=== PATIENT | female | born 1965 | race Caucasian/White ===

== ENCOUNTER 2020-11-03 21:06 | Emergency (ER) | payer OTHER ==
[2020-11-03] MEDS ORDERED: morphine INJ 10 MG/ML 1ML (SYR OR VIAL) IVP STA (21:23)
[2020-11-03] MEDS ORDERED: ONDANSETRON 4 MG/2 ML (SDV) Z0FRAN IVP ONE (21:30)
--- NOTE | 2020-11-03 21:38 | ED Trauma-Multisystem ---
General Chief Complaint: Trauma-Non Activation Stated Complaint: FALL Nursing Triage Note: Pt states she fell in the street and now presents with right breast/side pain History of Present Illness Date Seen by Provider: Nov 03, 2020 Time Seen by Provider: 21:25 Initial Comments This obese 55 y/o postmenopausal female smoker presents w/ severe pain in right anterior costal margin area along w/ abdominal wall ecchymosis and rib pain upon movement, coughing, or deep breath. Onset was 2-3 days ago when she fell from standing position and denies syncope/LOC. She has not sought care for this until now and states she can't take the pain any longer. She took Naproxen w/o relief. She denies chronic illness, daily meds, prior surgery, allergies to medicine, and her last menses was "years ago". No reported fever, sputum, hemoptysis, or change in her smoker's cough other than pain in chest wall on coughing. No pain in head, neck, back, or extremities. Occurred: Other Severity: Severe Method of Injury: Fall Modifying Factors: Movement Loss of Consciousness: No Loss of Consciousness Associated Symptoms (Fall): Abdominal Pain, Chest Pain; No Headache, No Nausea/Vomiting, No Neck Pain, No Shortness of Air Allergies and Home Medications Allergies Coded Allergies: No Known Drug Allergies (Unverified , 11/03/20) Patient Home Medication List Home Medication List Reviewed: Yes Review of Systems Review of Systems Constitutional: No fever Eyes: No Symptoms Reported Ears: No Symptoms Reported Nose: No Symptoms Reported Mouth: No Symptoms Reported Respiratory: cough; No hemoptysis, No phlegm, No stridor, No wheezing Cardiovascular: See HPI, Chest Pain; Denies Syncope Gastrointestinal: abdominal pain; No jaundice, No vomiting Genitourinary: no symptoms reported : No Musculoskeletal: see HPI; No back pain, No joint pain, No neck pain Skin: see HPI Psychiatric/Neurological: Anxiety; Denies Headache, Denies Numbness, Denies Weakness Past Xfxlcxf-Auyuqk-Urllal Hx Past Med/Social Hx: Reviewed and Corrections made (She denies diabetes and denies recent lab work to check for it; mother had diabetes) Patient Social History Alcohol Use: Denies Use Smoking Status: Current Everyday Smoker Type Used: Cigarettes 2nd Hand Smoke Exposure: Yes Recent Infectious Disease Expo: No Recent Hopitalizations: No Past Medical History Surgeries: No Respiratory: No Cardiac: No Neurological: No : No Female 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 oz. kg; BMI Method: General Appearance: Moderate Distress, Obese Eyes: Bilateral Eye PERRL Ears, Nose, Throat: Hearing Grossly Normal, No Evidence of ENT Injury Neck: Normal Inspection, Non Tender Cardiovascular: No JVD, Normal Peripheral Pulses Respiratory: Lungs Clear, No Accessory Muscle Use, No Respiratory Distress Gastrointestinal: Soft, Tenderness Back: Normal Inspection, No CVA Tenderness, No Vertebral Tenderness Extremity: Normal Capillary Refill, Normal Range of Motion, Non Tender Neurologic/Psychiatric: Alert, Oriented x3, No Motor/Sensory Deficits Skin: Normal Color, Damp, Ecchymosis (scattered ecchymoses on anterior abdomen) Tiffanie Coma Score Best Eye Response (Tiffanie): (4) Open Spontaneously Best Verbal Response (Tiffanie): (5) Oriented Best Motor Response (Jefferson): (6) Obeys Commands Progress/Results/Core Measures Results/Orders Lab Results Laboratory Tests Test 11/03/20 21:50 11/03/20 23:37 11/03/20 23:50 11/04/20 00:32 Range/Units White Blood Count 9.4 4.3-11.0 10^3/uL Red Blood Count 5.35 4.35-5.85 10^6/uL Hemoglobin 16.3 H 11.5-16.0 G/DL Hematocrit 52 35-52 % Mean Corpuscular Volume 96 80-99 FL Mean Corpuscular Hemoglobin 30 25-34 PG Mean Corpuscular Hemoglobin Concent 32 32-36 G/DL Red Cell Distribution Width 12.8 10.0-14.5 % Platelet Count 210 130-400 10^3/uL Mean Platelet Volume 11.5 H 7.4-10.4 FL Sodium Level 129 L 135-145 MMOL/L Potassium Level 5.0 3.6-5.0 MMOL/L Chloride Level 91 L 98-107 MMOL/L Carbon Dioxide Level 28 21-32 MMOL/L Anion Gap 10 5-14 MMOL/L Blood Urea Nitrogen 14 7-18 MG/DL Creatinine 0.65 0.60-1.30 MG/DL Estimat Glomerular Filtration Rate > 60 BUN/Creatinine Ratio 22 Glucose Level 612 *H 70-105 MG/DL Calcium Level 10.2 H 8.5-10.1 MG/DL Total Bilirubin 0.4 0.1-1.0 MG/DL Direct Bilirubin 0.2 0.0-0.3 MG/DL Indirect Bilirubin 0.2 MG/DL Aspartate Amino Transf (AST/SGOT) 40 H 5-34 U/L Alanine Aminotransferase (ALT/SGPT) 63 H 0-55 U/L Alkaline Phosphatase 175 H 40-136 U/L Total Protein 7.6 6.4-8.2 GM/DL Albumin 3.6 3.2-4.5 GM/DL Glucometer 444 *H 455 *H 70-110 MG/DL Urine Color YELLOW Urine Clarity CLEAR Urine pH 5.5 5-9 Urine Specific [place] <=1.005 1.016-1.022 Urine Protein NEGATIVE NEGATIVE Urine Glucose (UA) 3+ H NEGATIVE Urine Ketones NEGATIVE NEGATIVE Urine Nitrite NEGATIVE NEGATIVE Urine Bilirubin NEGATIVE NEGATIVE Urine Urobilinogen 0.2 < = 1.0 MG/DL Urine Leukocyte Esterase NEGATIVE NEGATIVE Urine RBC (Auto) 1+ H NEGATIVE Urine RBC 0-2 /HPF Urine WBC RARE /HPF Urine Squamous Epithelial Cells 2-5 /HPF Urine Crystals NONE /LPF Urine Bacteria TRACE /HPF Urine Casts NONE /LPF Urine Mucus NEGATIVE /LPF Urine Culture Indicated NO Test 11/04/20 01:40 Range/Units Sodium Level 137 135-145 MMOL/L Potassium Level 4.4 3.6-5.0 MMOL/L Chloride Level 101 98-107 MMOL/L Carbon Dioxide Level 25 21-32 MMOL/L Anion Gap 11 5-14 MMOL/L Blood Urea Nitrogen 17 7-18 MG/DL Creatinine 0.57 L 0.60-1.30 MG/DL Estimat Glomerular Filtration Rate > 60 BUN/Creatinine Ratio 30 Glucose Level 352 H 70-105 MG/DL Calcium Level 9.5 8.5-10.1 MG/DL My Orders Orders - LITA LARA MD Cbc No Diff (11/03/20 21:20) Basic Metabolic Panel (11/03/20 21:20) Liver Panel (11/03/20 21:20) Ua Culture If Indicated (11/03/20 21:20) Chest 1 View Ap/Pa Only (11/03/20 21:20) Ed Iv/Invasive Line Start (11/03/20 21:20) Ct Abdomen/Pelvis W (11/03/20 21:22) Morphine Injection (Morphine Injection (11/03/20 21:23) Ondansetron Injection (Zofran Injectio (11/03/20 21:30) Iohexol Injection (Omnipaque 350 Mg/Ml 1 (11/03/20 21:45) Received Contrast (Hold Metformin- Contr (11/03/20 21:45) Sodium Chloride Flush (Catheter Flush Sy (11/03/20 21:45) Ns (Ivpb) (Sodium Chloride 0.9% Ivpb Bag (11/03/20 21:45) Ns Iv 1000 Ml (Sodium Chloride 0.9%) (11/03/20 22:30) Insulin (Regular) Human (Novolin R (Per (11/03/20 22:45) Insulin (Regular) Human (Novolin R (Per (11/04/20 00:45) Ns Iv 1000 Ml (Sodium Chloride 0.9%) (11/04/20 00:45) Morphine Injection (Morphine Injection (11/04/20 01:09) Basic Metabolic Panel (11/04/20 01:32) Medications Given in ED Current Medications Medications Dose Ordered Sig/Arya Route Start Time Stop Time Status Last Admin Dose Admin Insulin Human Regular 5 unit ONCE ONCE IV 11/03/20 22:45 11/03/20 22:46 DC 11/03/20 22:47 5 UNIT Insulin Human Regular 10 unit ONCE ONCE IV 11/04/20 00:45 11/04/20 00:46 DC 11/04/20 00:46 10 UNIT Iohexol 100 ml ONCE ONCE IV 11/03/20 21:45 11/03/20 21:46 DC 11/03/20 22:38 100 ML Ondansetron HCl 4 mg ONCE ONCE IVP 11/03/20 21:30 11/03/20 21:31 DC 11/03/20 22:06 4 MG Sodium Chloride 10 ml NEEDED PRN IV 11/03/20 21:45 11/03/20 22:38 10 ML Sodium Chloride 100 ml ONCE ONCE IV 11/03/20 21:45 11/03/20 21:46 DC 11/03/20 22:38 100 ML Vital Signs/I&O 11/03/20 21:12 Temp 37.1 Pulse 96 Resp 20 B/P (MAP) 134/105 (115) Pulse Ox 95 O2 Delivery Room Air 11/03/20 23:59 Intake Total 1000 ml Balance 1000 ml Blood Pressure Mean: 115 Progress Progress Note : Time: 00:50 Progress Note She had transient improvement in blood sugar w/ IV NS and 5 units regular insulin IV, but now glucose starting upward again; will repeat NS and give 10 units IS insulin and then plan for BMP in 1-2 hours. 03:00 update; stable and improved glucose; will DC on oral agent and emphasized need to see PCP TODAY. Consults : Consults Notes Disc by phone w/ Dr Lennon, personalized living manager nurse for PCP Dr Bolden, and she states patient can be discharged after sugar decreased and seen in office today at clinic. Patient voices willingness and ability to comply. Blood sugar improving w/ insulin and IV saline. Pain improved w/ MS; no definite fx seeen on CXR or CT abdomen; no intra-abdominal injury identified. Glucose > 600 pre-treatment and mildly elevated LFT. Departure Impression Primary Impression: Chest wall pain Additional Impression: Hyperglycemia due to diabetes mellitus Disposition: HOME, SELF-CARE Condition: Stable Transfer Method of Transfer: Private Vehicle ( HERE TO DRIVE) Departure-Patient Inst. Referrals: JORGE BOLDEN MD Patient Instructions: Hyperglycemia, Adult (DC), RIB CONTUSION, Diabetes Type 2 (DC), Diabetes Exchange Diet Add. Discharge Instructions: DR LENNON RECOMMENDS OUTPATIENT FOLLOW-UP TODAY IN THE CLINIC WITH DR BOLDEN OR ASSOCIATE. SERIOUS HEALTH PROBLEMS CAN RESULT FROM FAILURE TO DO SO. CALL AT 8 AM TO ARRANGE IT. IF THEY ARE UNABLE TO SEE YOU PROMPTLY THEN START THE ORAL DIABETIC MEDICINE WITH [facility] AND SEE THEM SOON POSSIBLE. RETURN TO ER IF WORSE OR IF NEW SYMPTOMS. DRINK PLENTY OF WATER TO HYDRATE AND HELP FLUSH THE HIGH SUGAR FROM YOUR BODY. All discharge instructions reviewed with patient and/or family. Voiced understanding. Work/School Note: Family Work Note LITA LARA MD Nov 03, 2020 21:38
[2020-11-03] MEDS ORDERED: IOHEXOL 350 MG/ML 100 ML (OMNIPAQUE 350) VIAL IV ONE (21:45)
[2020-11-03] MEDS ORDERED: HOLD METFORMIN - RECEIVED CONTRAST 20 ML VIAL IV SCH (21:45)
[2020-11-03] MEDS ORDERED: CATHETER FLUSH 10 ML SYR IV PRN (21:45)
[2020-11-03] MEDS ORDERED: NS 100 ML (IVPB) BAG IV ONE (21:45)
--- NOTE | 2020-11-03 21:59 | Diagnostic Imaging Report ---
INDICATION: Fell , now presents with right-sided breast and chest pain. FINDINGS: Frontal view of the chest demonstrates the lungs to be clear. Heart, mediastinum and pulmonary vascularity are normal. No fracture is identified. There is no pleural effusion or pneumothorax. IMPRESSION: Negative chest. Dictated by: Dictated on workstation # [id number]
[2020-11-03 22:05] LABS: WHITE BLOOD COUNT 9.4 10^3/uL (4.3-11.0)
[2020-11-03 22:06] LABS: HEMOGLOBIN 16.3 G/DL (11.5-16.0); MEAN PLATELET VOLUME 11.5 FL (7.4-10.4)
[2020-11-03 22:23] LABS: SODIUM 129 MMOL/L (135-145)
[2020-11-03 22:25] LABS: BUN/CREATININE RATIO 22; CARBON DIOXIDE 28 MMOL/L (21-32); CHLORIDE 91 MMOL/L (98-107); CREATININE SERUM 0.65 MG/DL (0.60-1.30); GFR ESTIMATED > 60
[2020-11-03 22:30] LABS: BILIRUBIN,DIRECT 0.2 MG/DL (0.0-0.3); BILIRUBIN,INDIRECT 0.2 MG/DL; BILIRUBIN,TOTAL 0.4 MG/DL (0.1-1.0); CALCIUM 10.2 MG/DL (8.5-10.1); GLUCOSE 612 MG/DL (70-105)
[2020-11-03] MEDS ORDERED: NS IV 1000 ML 1,000 ML IV SCH (22:30)
[2020-11-03 22:31] LABS: ALANINE AMINOTRANSFERASE 63 U/L (0-55); ALBUMIN 3.6 GM/DL (3.2-4.5); ALKALINE PHOSPHATASE 175 U/L (40-136); TOTAL PROTEIN 7.6 GM/DL (6.4-8.2)
[2020-11-03] MEDS ORDERED: inSUlin (REGULAR) HUMAN 1 UNIT/0.01 ML (CHARGE PER UNIT) IV ONE (22:45)
[2020-11-04 00:20] LABS: CLARITY,URINE CLEAR; COLOR,URINE YELLOW; GLUCOSE, URINE (UA) 3+ (NEGATIVE); KETONES,URINE NEGATIVE (NEGATIVE); NITRITE,URINE NEGATIVE (NEGATIVE); PH,URINE 5.5 (5-9); PROTEIN,URINE NEGATIVE (NEGATIVE)
[2020-11-04 00:21] LABS: BACTERIA,URINE TRACE /HPF; BILIRUBIN,URINE NEGATIVE (NEGATIVE); LEUKOCYTE ESTERASE ,URINE NEGATIVE (NEGATIVE); RBC,URINE 0-2 /HPF; WBC,URINE RARE /HPF
[2020-11-04] MEDS ORDERED: NS IV 1000 ML 1,000 ML IV SCH (00:45)
[2020-11-04] MEDS ORDERED: inSUlin (REGULAR) HUMAN 1 UNIT/0.01 ML (CHARGE PER UNIT) IV ONE (00:45)
[2020-11-04] MEDS ORDERED: morphine INJ 10 MG/ML 1ML (SYR OR VIAL) IVP STA (01:09)
[2020-11-04 02:34] LABS: BUN/CREATININE RATIO 30; CALCIUM 9.5 MG/DL (8.5-10.1); CARBON DIOXIDE 25 MMOL/L (21-32); CHLORIDE 101 MMOL/L (98-107); CREATININE SERUM 0.57 MG/DL (0.60-1.30); GFR ESTIMATED > 60; GLUCOSE 352 MG/DL (70-105); POTASSIUM 4.4 MMOL/L (3.6-5.0); SODIUM 137 MMOL/L (135-145)
[2020-11-04] MEDS ORDERED: HYDROcodone/APAP 5 MG/325 MG (LORTAB) TAB PO ONE (03:15)
[2020-11-04 03:18] VITALS: BP 132/80
[2020-11-04] MEDS ORDERED: GLYB5TAB6 PO (03:22)
[2020-11-04] MEDS ORDERED: HYDR-4227 PO (03:22)
--- NOTE | 2020-11-04 07:19 | Diagnostic Imaging Report ---
PROCEDURE: CT abdomen and pelvis with contrast. TECHNIQUE: Multiple contiguous axial images were obtained through the abdomen and pelvis after administration of intravenous contrast. Auto Exposure Controls were utilized during the CT exam to meet ALARA standards for radiation dose reduction. All CT scans use one or more of the following dose optimizing techniques: automated exposure control, MA and/or KvP adjustment based on patient size and exam type or iterative reconstruction. INDICATION: Status post fall. Abdominal pain EXAMINATION: CT abdomen pelvis with contrast from 11/03/2020 FINDINGS: Visualized lung bases clear. There is marked fatty infiltration throughout the liver which is otherwise normal. The spleen, gallbladder and adrenal glands as well as pancreas unremarkable. Kidneys unremarkable. There is diffuse mild atherosclerotic disease. Diverticular disease noted without evidence for diverticulitis. Appendix is normal. There is no ascites or free air. The osseous structures demonstrates slight deformity of the distal coccyx age indeterminate correlate clinically. The remaining osseous structures demonstrate no acute abnormalities. IMPRESSION: 1. Mild deformity of the coccyx age indeterminate correlate for point tenderness. 2. Diffuse fatty infiltration throughout the liver, diverticular disease and other incidental findings as above. Pertinent findings agree with the preliminary report. Dictated by: Dictated on workstation # [id number]
== END 2020-11-04 03:41 | disposition home or self-care (01) ==
LOC: ER FS 21:11
DX: S30.1XXA Contusion of abdominal wall, initial encounter (principal); R07.89 Other chest pain; E11.65 Type 2 diabetes mellitus with hyperglycemia; E66.9 Obesity, unspecified; F41.9 Anxiety disorder, unspecified; F17.210 Nicotine dependence, cigarettes, uncomplicated; W18.30XA Fall on same level, unspecified, initial encounter
CPT/HCPCS: 36415; 71045; 74177; 80048; 80076; 81000; 82962; 85027

== ENCOUNTER → 2021-12-29 | Outpatient (CLI) | payer OTHER ==
[~2021-12-29] MED LIST: CATHETER FLUSH 10 ML SYR IV PRN; GLBR5T PO; HOLD METFORMIN - RECEIVED CONTRAST 20 ML VIAL IV SCH; HYDR-4227 PO; IOHEXOL 350 MG/ML 100 ML (OMNIPAQUE 350) VIAL IV ONE; NS 100 ML (IVPB) BAG IV ONE
[2021-12-29 08:47] LABS: CREATININE SERUM 0.76 MG/DL (0.60-1.30)
--- NOTE | 2021-12-29 11:16 | Diagnostic Imaging Report ---
PROCEDURE: CT chest with contrast only. TECHNIQUE: Multiple contiguous axial images were obtained through the chest after administration of intravenous contrast. Auto Exposure Controls were utilized during the CT exam to meet ALARA standards for radiation dose reduction. DATE: December 29, 2021. COMPARISON: None. INDICATION: 56-year-old female, cough. FINDINGS: There are mild linear opacities in the lingula most compatible with atelectasis. There is a 3 mm left lower lobe pulmonary nodule on axial image 83. There is no pneumothorax. There is no pleural effusion. The central airways are patent. The heart is not enlarged. There is no pericardial effusion. There is no identified abnormally enlarged mediastinal, hilar, or axillary lymph node meeting CT size criteria for adenopathy. Imaged portions of the upper abdomen are unremarkable. There are multilevel degenerative changes of the spine. There are chronic appearing right rib deformities. There are chronic appearing left rib deformities. There is no identified acute bony abnormality. IMPRESSION: CT CHEST. 1. No identified acute cardiopulmonary abnormality. 2. A 3 mm left lower lobe pulmonary nodule. Followup CT chest without contrast in 6 months is recommended to evaluate for stability. 3. Atelectasis in the lingula. 4. Chronic bilateral rib deformities. Dictated by: Dictated on workstation # [id number]
--- NOTE | 2021-12-29 12:16 | Diagnostic Imaging Report ---
INDICATION: Right upper quadrant pain. Patient was administered 5.3 mCi technetium 99m Choletec intravenously and imaging over the abdomen was performed. At 30 minutes patient ingested 8 ounces of Ensure and the gallbladder ejection fraction was calculated. There is homogeneous uptake of activity by the liver with prompt excretion of activity into the common duct and gallbladder. There is normal passage of activity into the small bowel. Gallbladder ejection fraction is abnormally low at 14%. Normal values are 35% or greater. IMPRESSION: 1. Patent cystic duct and common bile duct. 2. Abnormally low gallbladder ejection fraction of 14%. Dictated by: Dictated on workstation # [id number]
== END ==
LOC: CARD 09:15
PROVIDERS: ATTEND Surgery
DX: J98.11 Atelectasis (principal); M95.4 Acquired deformity of chest and rib; R91.1 Solitary pulmonary nodule; R10.11 Right upper quadrant pain; F17.200 Nicotine dependence, unspecified, uncomplicated
CPT/HCPCS: 36415; 71260; 78227; 82565; 84520

== ENCOUNTER 2022-01-05 05:49 | Outpatient (CLI) | payer OTHER ==
[~2022-01-05] VITALS: Ht 160 cm; Wt 125.3 kg
[~2022-01-05 05:49] MED LIST changes: -CATHETER FLUSH 10 ML SYR IV PRN; -HOLD METFORMIN - RECEIVED CONTRAST 20 ML VIAL IV SCH; -IOHEXOL 350 MG/ML 100 ML (OMNIPAQUE 350) VIAL IV ONE; -NS 100 ML (IVPB) BAG IV ONE
[2022-01-05] MEDS ORDERED: LISI10TA25 PO (09:59)
[2022-01-05] MEDS ORDERED: METF-865 PO (09:59)
[2022-01-05] MEDS ORDERED: PANT40TA52 PO (09:59)
[2022-01-05] MEDS ORDERED: ASPI-999 PO (09:59)
[2022-01-05] MEDS ORDERED: ONDA4TAB11 PO (09:59)
[2022-01-05] MEDS ORDERED: DULA1.5P2 SQ (09:59)
== END 2022-01-05 11:10 | disposition home or self-care (01) ==
LOC: PREOP 05:49
PROVIDERS: ATTEND Surgery
DX: Z01.818 Encounter for other preprocedural examination (principal)

== ENCOUNTER 2022-01-12 10:45 | Day surgery (SDC) | payer OTHER ==
[~2022-01-12] VITALS: Ht 160 cm; Wt 125.3 kg
[~2022-01-12 10:45] MED LIST changes: +ASPI-999 PO; +DULA1.5P2 SQ; +LISI10TA25 PO; +METF-865 PO; +ONDA4TAB11 PO; +PANT40TA52 PO
[2022-01-12] MEDS ORDERED: LACTATED RINGERS 1,000 ML IV ONE (10:49)
[2022-01-12] MEDS ORDERED: LACTATED RINGERS 1,000 ML IV STA (10:53)
--- NOTE | 2022-01-12 10:55 | Progress Note-Pre Operative ---
Pre-Operative Progress Note H&P Reviewed The H&P was reviewed, patient examined and no changes noted. Time Seen by Provider: 10:52 Date H&P Reviewed: Jan 12, 2022 Time H&P Reviewed: 10:52 Pre-Operative Diagnosis: Chronic Gastritis, Rectal bleed KATIANA JOHNSON DO Jan 12, 2022 10:55
[2022-01-12 11:00] VITALS: BP 167/95
[2022-01-12] MEDS ORDERED: HURRICAINE EXT TUBE (BENZOCAINE) XX PRN (11:00)
[2022-01-12] MEDS ORDERED: MIDAZOLAM 2 MG/2 ML (VERSED) VIAL ONE (11:27)
[2022-01-12] MEDS ORDERED: PROPOFOL INJECTION 50 ML IV ONE (11:27)
[2022-01-12 12:05] VITALS: BP 108/57
--- NOTE | 2022-01-12 12:06 | Progress Note-Post Operative ---
Post-Operative Progess Note Surgeon (s)/Manager Progressive Care (s) Surgeon KATIANA JOHNSON DO Manager Progressive Care: none Pre-Operative Diagnosis Chronic Gastritis, Rectal bleed Post-Operative Diagnosis Gastritis Esophagitis Hiatal hernia hemorrhoids Procedure & Operative Findings Date of Procedure 01/12/22 Procedure Performed/Findings EGD with bx Colonoscopy PROCEDURE NOTE: After informed consent was obtained, the patient was brought to the endoscopy suite, placed in bed in left lateral decubitus position. She was administered IV sedation by the EMERGENCY ROOM NURSE who then monitored vitals the entire time, heart rate, blood pressure and pulse ox and the scope was inserted down the mouth through the esophagus into the stomach. On the way down, noted some mild esophagitis, took a picture, pushed into the stomach and noted at least moderate gastritis; took a picture. Pushed past the antrum into the duodenum; duodenum looked good. Pulled back and did a biopsy of the antrum, then retroflexed the scope, saw a small hiatal hernia, took a picture of this and then pulled the scope into the GE junction, took another picture of the hiatal hernia and then did a biopsy of the GE junction. Pushed the scope back into the stomach, suctioned all the air out of the stomach. At this point pulled the scope up the esophagus and out the mouth. Switched camera, switched gloves, went down below, started the colonoscopy. Pushed all the way into about 140 cm to get all the way to cecum, took a picture of the appendiceal orifice, noted the ileocecal valve and then slowly withdrew the scope, insufflating to look circumferentiallly at the mcmahon starting in the cecum, up the ascending colon to the hepatic flexure, then down the transverse colon, splenic flexure, into the descending colon, down into the sigmoid and finally into the rectum, retroflexed in the rectal vault, saw some minimal internal hemorrhoids and took a picture of this. The patient tolerated the procedure and she recovered in the endoscopy suite. Anesthesia Type IV sedation by EMERGENCY ROOM NURSE Estimated Blood Loss Estimated blood loss (mL): scant Specimens/Packing Specimens Removed antral bx body of stomach bx GE jxn bx KATIANA JOHNSON DO Jan 12, 2022 12:06
--- NOTE | 2022-01-12 12:08 | Endoscopy Discharge Instruct ---
Endo Procedure/Findings Findings 1.: Gastritis 2.: Hiatal Hernia 3.: Internal Hemorrhoids Discharge Instructions - Activity: You might feel a little sleepy until tomorrow. This is due to the medicine you received to relax you. Until tomorrow, you should: NOT drive a car, operate machinery or power tools. NOT drink any alcoholic beverages. NOT make any important decisions or sign importortant papers. Do not return to work until tomorrow, unless otherwise instructed. Resume previous activities tomorrow. Diet: Start by taking liquids. If you tolerate liquids, advance to solid food. 1.: EGD in 3 years 2.: Colonscopy in 10 years Notify Physician - If you experience excessive bleeding, unusual abdominal pain, fever, or chest pain, contact your doctor immediately. KATIANA JOHNSON DO Jan 12, 2022 12:08
[2022-01-12 12:10] VITALS: BP 116/59
[2022-01-12 12:15] VITALS: BP 125/68
[2022-01-12 12:35] VITALS: BP 148/88
[2022-01-12 12:38] VITALS: BP 148/88
--- NOTE | 2022-01-12 14:26 | Anesthesia-General Post-Op ---
MAC Patient Condition Mental Status/LOC: Same as Preop Cardiovascular: Satisfactory Nausea/Vomiting: Absent Respiratory: Satisfactory Pain: Controlled Complications: Absent Post Op Complications Complications None Follow Up Care/Instructions Patient Instructions None needed. Anesthesiology Discharge Order Discharge Order Patient is doing well, no complaints, stable vital signs, no apparent adverse anesthesia problems. No complications reported per nursing. JULIANO WALTON CRNA Jan 12, 2022 14:26
== END 2022-01-12 12:43 | disposition home or self-care (01) ==
LOC: ENDO 10:45
PROVIDERS: ATTEND Surgery
DX: K29.51 Unspecified chronic gastritis with bleeding (principal); K21.01 Gastro-esophageal reflux disease with esophagitis, with bleeding; K44.9 Diaphragmatic hernia without obstruction or gangrene; B96.81 Helicobacter pylori [H. pylori] as the cause of diseases classified elsewhere; K64.8 Other hemorrhoids; F17.210 Nicotine dependence, cigarettes, uncomplicated
CPT/HCPCS: 82947

== ENCOUNTER → 2022-02-18 | Outpatient (CLI) | payer OTHER | LOC: LAB FS 11:49 | PROVIDERS: ATTEND Surgery | DX: B96.81 Helicobacter pylori [H. pylori] as the cause of diseases classified elsewhere (principal) | CPT/HCPCS: 36415; 87338 ==

== ENCOUNTER 2022-03-09 06:20 | Outpatient (CLI) | payer OTHER ==
[~2022-03-09] VITALS: Ht 160.2 cm; Wt 127.7 kg
[2022-03-11] MEDS ORDERED: ACHYD1T PO (12:08)
== END 2022-03-09 13:59 | disposition home or self-care (01) ==
LOC: PREOP 06:20
PROVIDERS: ATTEND Surgery
DX: Z01.818 Encounter for other preprocedural examination (principal)

== ENCOUNTER 2022-03-11 09:25 | Day surgery (SDC) | payer OTHER ==
[~2022-03-11] VITALS: Ht 160 cm; Wt 121.7 kg
[2022-03-11] VITALS (12 sets, daily range): BP systolic 120–165; BP diastolic 73–99
[2022-03-11] MEDS ORDERED: LIDOCAINE/EPI 2% 1:200,00 (XYLOCAINE) 20 ML VIAL ONE (09:56)
[2022-03-11] MEDS ORDERED: ceFAZolin INJECTION 3,000 MG in NS (IVPB) 100 ML IV ONE (10:00)
[2022-03-11] MEDS: LACTATED RINGERS 1,000 ML IV PRN ×2 (10:29→11:56)
--- NOTE | 2022-03-11 10:54 | Progress Note-Pre Operative ---
Pre-Operative Progress Note H&P Reviewed The H&P was reviewed, patient examined and no changes noted. Time Seen by Provider: 10:51 Date H&P Reviewed: March 11, 2022 Time H&P Reviewed: 10:51 Pre-Operative Diagnosis: Biliary Dyskinesia KATIANA JOHNSON DO March 11, 2022 10:54
[2022-03-11] MEDS ORDERED: fentaNYL INJ 100 MCG/2 ML AMP ONE (11:02)
[2022-03-11] MEDS ORDERED: LIDOCAINE PF 2% 5 ML (XYLOCAINE) VIAL ONE (11:02)
[2022-03-11] MEDS ORDERED: proPOfol 200 MG/20 ML (DIPRIVAN) VIAL IV ONE ×2 (11:02→12:06)
[2022-03-11] MEDS ORDERED: ONDANSETRON 4 MG/2 ML (SDV) Z0FRAN ONE (11:02)
[2022-03-11] MEDS ORDERED: SEVOFLURANE (ULTANE) 15 ML INHAL SOLN ONE ×2 (11:02→12:12)
[2022-03-11] MEDS ORDERED: MIDAZOLAM 2 MG/2 ML (VERSED) VIAL ONE (11:03)
[2022-03-11] MEDS ORDERED: ROCURONIUM 50 MG/5 ML (ZEMURON) VIAL IV ONE (11:32)
[2022-03-11] MEDS ORDERED: GLYCOPYRROLATE 0.2 MG/ML (ROBINUL) 2 ML VIAL ONE (11:32)
[2022-03-11] MEDS ORDERED: NEOSTIGMINE 3 MG/3 ML VIAL ONE (11:32)
[2022-03-11] MEDS ORDERED: PHENYLEPHRINE 100 MCG/ML 10 ML (ANESTHESIA) SYR ONE (11:33)
[2022-03-11] MEDS ORDERED: ACHYD1T PO (12:08)
--- NOTE | 2022-03-11 12:09 | Discharge Inst-Surgical ---
Discharge Inst-Surgical Depart Medication/Instructions New, Converted or Re-Newed RX: Transmitted to Pharmacy Patient Instructions Follow up Appt: Make appointment for 1 week. [phone] Instructions: No lifting greater than 20 pounds. No strenuous activity. May shower in 24 hours, no tub bath or soaking. Use incentive spirometer at home as directed. No Smoking Skin/Wound Care: May remove bandages in am. You need to leave the Dermabond on incision it will fall off on it's own. Symptoms to Report: Appetite Changes, Extremity Discoloration, Numbness/Tingling, Swelling Increased, Bleeding Excessive, Eyesight Changes, Pain Increased, Urine Color Change, Constipation(Persistent), Fever over 101 degree F, Pain/Pressure in chest, Urinating Difficulty, Cough Up/Vomit Blood, Heart Beat Irreg/Pounding, Pain/Pressure in jaw, Cramps in feet or legs, Lightheadedness, Pain/Pressure in shoulder, Diarrhea(Persistent), Memory Changes Suddenly, Questions/Concerns, Weight gain consecutive days, Dizziness/Fainting, Nausea/Vomiting, Shortness of Breath, Weight gain over 2 pounds If questions or concerns contact your physician Or seek help at emergency department. Activity Activity as Tolerated: Yes Activity Instructions: Avoid Stress to Incision Driving Instructions: No Driving/Refer to Dr. Reid Discharge Diet: Avoid Fatty Foods, Low Fat/Low Cholesterol Diet After 24 Hours: Clear Liquid if Nauseous If Any Problems/Questions/Issu: Contact Your Physician, Go to Emergency Room Skin/Wound Care Infection Signs and Symptoms: Increased Redness, Foul Odor of Wound, Increased Drainage, Skin Itchy or Has a Rash, Increased Swelling, Temperature Above 101 F Wound Care Comment: heating pad to shoulder or neck tonight for pain Bathing Instructions: Shower Stitches/Smiley/Dermabond Dis: Hirenond KATIANA JOHNSON DO March 11, 2022 12:09
[2022-03-11] MEDS ORDERED: morphine INJ 10 MG/ML 1ML (SYR OR VIAL) IVP ONE (12:30)
[2022-03-11] MEDS ORDERED: ONDANSETRON 4 MG/2 ML (SDV) Z0FRAN IVP PRN (12:30)
[2022-03-11] MEDS ORDERED: HYDROmorphone 2 MG/ML VIAL (DILAUDID) IV ONE (12:30)
--- NOTE | 2022-03-11 13:29 | Diagnostic Imaging Report ---
CLINICAL INDICATION: Lap rosemarie. EXAM: There are two limited intraoperative images of the abdomen. COMPARISONS: CT scan of the abdomen and pelvis with contrast dated 11/03/2020. FINDINGS AND IMPRESSION: Please see clinician's report for more detail. Fluoroscopy was provided for clinician and a total of 13.1 seconds and 19.31 mGy was provided. Dictated by: Dictated on workstation # [id number]
--- NOTE | 2022-03-11 14:21 | Anesthesia-General Post-Op ---
General Patient Condition Mental Status/LOC: Same as Preop Cardiovascular: Satisfactory Nausea/Vomiting: Absent Respiratory: Satisfactory Pain: Controlled Complications: Absent Post Op Complications Complications None Follow Up Care/Instructions Patient Instructions None needed. Anesthesia/Patient Condition Patient Condition Patient is doing well, no complaints, stable vital signs, no apparent adverse anesthesia problems. DANAY TAYLOR DO March 11, 2022 14:20
--- NOTE | 2022-03-11 15:22 | Progress Note-Post Operative ---
Post-Operative Progess Note Surgeon (s)/Digital Specialist (s) Surgeon KATIANA JOHNSON DO Digital Specialist: Mimi Pre-Operative Diagnosis Biliary Dyskinesia Post-Operative Diagnosis same plus adhesions Procedure & Operative Findings Date of Procedure 03/11/22 Procedure Performed/Findings PROCEDURE: Laparoscopic cholecystectomy with intraoperative cholangiogram. COMPLICATIONS: None. PROCEDURE: The patient was taken to the operating suite and was prepped and draped in sterile fashion. A surgical pause was performed. Just superior to the umbilicus, a 12 mm incision was made. Dissection was taken down to the fascia, which was then scored and grasped with a Kurt and the abdomen was then entered. An 0-Vicryl suture was placed in a [id number] fashion and a Snow trocar was placed and secured. Pneumoperitoneum was achieved. A 5mm trochar place in the subxyphoid and 2 in the right upper quadrant. Upon entering noted adhesions that appeared to be omentum stuck to the gallbladder. Carefully started taking down the adhesions and ablet to grasp the gallbladder at the fundus and elevated. The cystic duct and cystic artery were then dissected out. Clip was placed on the distal portion of the cystic duct which was then partially transected. An arrow catheter was inserted into the duct. The cholangiogram was then performed. No filing defects and cont rast made its way into the duodenum. Catheter removed. Clips were placed on proximal portion of the cystic duct and then the duct was then transected. Clips were placed along the proximal and distal portion of the cystic artery which was then transected. Hook cautery was used to dissect the gallbladder from the gallbladder fossa achieving hemostasis. The gallbladder was placed in an Endobag and removed through the 12 mm trocar site. The abdomen was then reinspected. Copious amounts of irrigation were used to irrigate the abdomen and there were no signs of active bleeding. Hemostasis had been achieved. The 12 mm fascial defect was then closed with 0 Vicryl suture that had been placed in a [id number] fashion. The abdomen was then desufflated, the trocars were removed. The abdomen was then washed and dried. The skin was then closed using 4-0 Monocryl in a subcuticular fashion. The abdomen was washed and dried and Skin Affix was place over incisions. Patient tolerated the procedure well without any complications and was taken to the recovery room in stable condition. Dr. Le assisted on this case helping to make incisions, close incisions, identify anatomy and hold anatomy out of the way. Anesthesia Type GET Estimated Blood Loss Estimated blood loss (mL): scant Specimens/Packing Specimens Removed GB and contents KATIANA JOHNSON DO March 11, 2022 15:22
== END 2022-03-11 14:49 | disposition home or self-care (01) ==
LOC: SDC 09:25
PROVIDERS: ATTEND Surgery
DX: K82.8 Other specified diseases of gallbladder (principal); K81.1 Chronic cholecystitis; F17.210 Nicotine dependence, cigarettes, uncomplicated; F17.290 Nicotine dependence, other tobacco product, uncomplicated; E66.01 Morbid (severe) obesity due to excess calories; Z68.42 Body mass index [BMI] 45.0-49.9, adult; Z86.19 Personal history of other infectious and parasitic diseases; Z79.82 Long term (current) use of aspirin
CPT/HCPCS: 76000; 82947; 84703; 87081